=== PATIENT | female | born 1965 | race Two or more races ===

== ENCOUNTER 2022-05-04 09:00 | Day surgery (SDC) | payer OTHER ==
[~2022-05-04 09:00] MED LIST: ATIVAN0.5 M1 PO; CYMBALTA30 MG PO; RESTORIL15 M1 PO
== END 2022-05-04 14:30 | disposition home or self-care (01) ==
LOC: AMB-ENDOS 09:00
PROVIDERS: ATTEND Colon & Rectal Surgery
DX: R15.9 Full incontinence of feces (principal); K64.4 Residual hemorrhoidal skin tags; Z20.822 Contact with and (suspected) exposure to COVID-19; G47.33 Obstructive sleep apnea (adult) (pediatric); R32 Unspecified urinary incontinence

== ENCOUNTER 2022-05-09 07:00 | Day surgery (SDC) | payer OTHER ==
[~2022-05-09] VITALS: Ht 154.9 cm; Wt 90.7 kg
== END 2022-05-09 17:10 | disposition home or self-care (01) ==
LOC: CIR.AMB 07:00
PROVIDERS: ATTEND Colon & Rectal Surgery
DX: R15.9 Full incontinence of feces (principal); R32 Unspecified urinary incontinence; Z20.822 Contact with and (suspected) exposure to COVID-19; G47.33 Obstructive sleep apnea (adult) (pediatric); Z99.89 Dependence on other enabling machines and devices

== ENCOUNTER 2023-01-20 06:10 | Day surgery (SDC) | payer OTHER ==
[~2023-01-20] VITALS: Ht 154.9 cm; Wt 93.0 kg
[~2023-01-20 06:10] MED LIST changes: +HORIZANT300 MG PO
== END 2023-01-20 16:00 | disposition home or self-care (01) ==
LOC: CIR.AMB 06:10
PROVIDERS: ATTEND Colon & Rectal Surgery
DX: G89.18 Other acute postprocedural pain (principal); R15.9 Full incontinence of feces; Z20.822 Contact with and (suspected) exposure to COVID-19